=== PATIENT | female | born 1990 | race Hispanic/Latino ===

== ENCOUNTER 2017-08-05 20:34 | Emergency (ER) | payer MEDICAID ==
[2017-08-05 20:37] VITALS: BMI 21.0
--- NOTE | 2017-08-05 21:43 | ED PDOC ---
HPI: Psych/Substance Abuse Time Seen by Provider: 08/05/17 20:58 Chief Complaint (Nursing): Psychiatric Evaluation Chief Complaint (Provider): Psychiatric evaluation ED Caveat: Psychotic History Per: Patient, EMS History/Exam Limitations: clinical condition Onset/Duration Of Symptoms: Mins Current Symptoms Are (Timing): Still Present Additional Complaint(s): 27 year old female presented to ED via PD and EMS for a psychiatric evaluation. Patient reports she was in [employer] and her dog was tied outside when a bystander called EMS with concerns that the dog was tied since button clamper. She claims it was only for a few minutes. She also states she has lower abdominal pain associated with dysuria for the last week. She was recently evicted from her apartment and has been homeless for the last 2 days as she has been sleeping on the bench. As per PD, patient was expressing intangible thoughts in field and was speaking nonsensically prompting ED evaluation. Denies hallucination, suicidal and homicidal ideation, and mental illness. PMD: none lmp: now (normally irregular) Past Medical History Reviewed: Historical Data, Nursing Documentation, Vital Signs Vital Signs: Last Vital Signs Temp 98.2 F 08/05/17 20:37 Pulse 91 H 08/05/17 20:37 Resp 16 08/05/17 20:37 BP 156/92 H 08/05/17 20:37 Pulse Ox 100 08/05/17 20:37 - Medical History PMH: No Chronic Diseases - Surgical History Surgical History: No Surg Hx - Family History Family History: States: Unknown Family Hx - Social History Current smoker - smoking cessation education provided: No Alcohol: Social Drugs: Denies - Allergies Allergies/Adverse Reactions: Allergies Allergy/AdvReac Type Severity Reaction Status Date / Time No Known Allergies Allergy Verified 08/05/17 21:18 Review of Systems ROS Statement: Except As Marked, All Systems Reviewed And Found Negative Gastrointestinal: Positive for: Abdominal Pain Genitourinary Female: Positive for: Dysuria Psych: Negative for: Suicidal ideation (or homicidal), Other (hallucination or mental illness) Physical Exam - Reviewed Nursing Documentation Reviewed: Yes Vital Signs Reviewed: Yes - Physical Exam Comments: GENERAL APPEARANCE: Patient is awake, alert, oriented x 3, in no acute distress. Resting comfortably with tangent thoughts SKIN: Warm, dry; (-) cyanosis EYES: EOMI and painless. Pupils reactive.(-) conjunctival pallor, (-) scleral icterus, (-) nystagmus. Avoiding eye contact with provider. ENMT: Mucous membranes moist. Airway patent: (-) stridor. NECK: Supple, FROM (-) tenderness, (-) stiffness, (-) lymphadenopathy. CHEST AND RESPIRATORY: (-) rales, (-) rhonchi, (-) wheezes; breath sounds equal. Speaking in full sentences, respirations even and nonlabored. ABDOMEN: Soft, (+) suprapubic tenderness (-) distention (-) guarding (-) rebound (-) CVA tenderness. NEURO AND PSYCH: Mental status as above. Affect: flat chart reader: Intact. Pupils equal and reactive; EOMI; (-) facial asymmetry ; tongue and uvula midline. Strength symmetric. Gait steady. Speech clear. - Laboratory Results Result Diagrams: 08/06/17 00:05 08/06/17 00:05 Urine POC: Negative Urine dip results: Positive for: Leukocyte Esterase (SMALL), Blood (MODERATE). Negative for: Nitrate, Ketones, Glucose, Bilirubin, Protein - ECG O2 Sat by Pulse Oximetry: 100 (RA) Pulse Ox Interpretation: Normal Medical Decision Making Medical Decision Making: Initial Impression: psychiatric evaluation and abdominal pain; r/o UTI Initial Plan: Crisis evaluation ED urine dipstick ED urine Udip reviewed. Urinalysis and urine culture ordered. Urine : Negative 2340 Per discussion with crisis, patient is likely to be admitted. CBC and CMP ordered. 2350 Patient refusing to stay in ED exam room and uncooperative with ED staff. 1:1 observation ordered. 0100 UTI noted on lab work otherwise remainder of results unremarkable. Patient is medically stable for psychiatric admission, if needed. Case endorsed to Parisa Ojeda PA-C pending crisis disposition. Pertinent details reviewed. Scribe Attestation: Documented by Lang Madrigal acting as a scribe for Annie JADE. Provider Scribe Attestation: All medical record entries made by the Scribe were at my direction and personally dictated by me. I have reviewed the chart and agree that the record accurately reflects my personal performance of the history, physical exam, medical decision making, and the department course for this patient. I have also personally directed, reviewed, and agree with the discharge instructions and disposition. Disposition - Clinical Impression Clinical Impression: Psychiatric disturbance, UTI (urinary tract infection) - Patient ED Disposition Is Patient to be Admitted: Transfer of Care (Migue Ojeda PA-C at 0100 pending crisis disposition) - Disposition Disposition: Transfer of Care (Migue Ojeda PA-C at 0100 pending crisis disposition) Disposition Time: 01:00 Condition: FAIR Forms: [facility] (Luxembourgish) - POA Present On Arrival: None Results - Lab Results Lab Results: 08/06/17 08/06/17 08/05/17 00:05 00:05 23:08 WBC 6.1 RBC 3.96 Hgb 12.3 Hct 37.4 MCV 94.5 MCH 31.0 MCHC 32.8 L RDW 12.6 Plt Count 220 MPV 8.7 Neut % (Auto) 45.7 L Lymph % (Auto) 40.8 H [place] % (Auto) 10.2 H Eos % (Auto) 2.4 Baso % (Auto) 0.9 Neut # (Auto) 2.8 Lymph # (Auto) 2.5 [place] # (Auto) 0.6 Eos # (Auto) 0.1 Baso # (Auto) 0.1 Sodium 143 Potassium 3.9 Chloride 105 Carbon Dioxide 26 Anion Gap 16 BUN 12 Creatinine 0.7 Est GFR ( Amer) > 60 Est GFR (Non-Af Amer) > 60 Random Glucose 86 Calcium 9.2 Total Bilirubin 0.2 AST 34 ALT 32 Alkaline Phosphatase 52 Total Protein 6.8 Albumin 4.2 Globulin 2.6 Albumin/Globulin Ratio 1.6 Urine Color Yellow Urine Clarity Cloudy Urine pH 6.0 Ur Specific [place] 1.015 Urine Protein Negative Urine Glucose (UA) Neg Urine Ketones Negative Urine Blood Large Urine Nitrate Negative Urine Bilirubin Negative Urine Urobilinogen 0.2-1.0 Ur Leukocyte Esterase Mod Urine RBC (Auto) 30 H Urine Microscopic WBC 39 H Ur Squamous Epith Cells 2 Urine Bacteria Rare Urine Opiates Screen Urine Methadone Screen Ur Barbiturates Screen Ur Phencyclidine Scrn Ur Amphetamines Screen U Benzodiazepines Scrn U Oth Cocaine Metabols U Cannabinoids Screen 08/05/17 23:08 WBC RBC Hgb Hct MCV MCH MCHC RDW Plt Count MPV Neut % (Auto) Lymph % (Auto) [place] % (Auto) Eos % (Auto) Baso % (Auto) Neut # (Auto) Lymph # (Auto) [place] # (Auto) Eos # (Auto) Baso # (Auto) Sodium Potassium Chloride Carbon Dioxide Anion Gap BUN Creatinine Est GFR ( Amer) Est GFR (Non-Af Amer) Random Glucose Calcium Total Bilirubin AST ALT Alkaline Phosphatase Total Protein Albumin Globulin Albumin/Globulin Ratio Urine Color Urine Clarity Urine pH Ur Specific [place] Urine Protein Urine Glucose (UA) Urine Ketones Urine Blood Urine Nitrate Urine Bilirubin Urine Urobilinogen Ur Leukocyte Esterase Urine RBC (Auto) Urine Microscopic WBC Ur Squamous Epith Cells Urine Bacteria Urine Opiates Screen Negative Urine Methadone Screen Negative Ur Barbiturates Screen Negative Ur Phencyclidine Scrn Negative Ur Amphetamines Screen Negative U Benzodiazepines Scrn Negative U Oth Cocaine Metabols Negative U Cannabinoids Screen Negative
[2017-08-05 23:19] LABS: SQUAMOUS EPITHIAL 2 /hpf (0-5); URINE BACTERIA RARE (<OCC); URINE BILIRUBIN NEGATIVE (NEGATIVE); URINE BLOOD LARGE (NEGATIVE); URINE CLARITY CLOUDY (Clear); URINE COLOR YELLOW (YELLOW); URINE GLUCOSE (UA) NEG (Normal); URINE LEUKOCYTE ESTERASE MOD Leu/uL (Negative); URINE PROTEIN NEGATIVE (NEGATIVE); URINE UROBILINOGEN 0.2-1.0 mg/dL (0.2-1.0)
[2017-08-05 23:33] LABS: BARBITURATES, UR NEGATIVE (NEGATIVE); BENZODIAZEPINES, UR NEGATIVE (NEGATIVE); OPIATES, UR NEGATIVE (NEGATIVE); PHENCYCLIDINE, UR NEGATIVE (NEGATIVE)
[2017-08-06 00:15] LABS: BASO # 0.1 K/uL (0.0-0.2); BASO % 0.9 % (0.0-2.0); EOS # 0.1 K/uL (0.0-0.7); EOS % 2.4 % (0.0-4.0); HEMOGLOBIN 12.3 g/dL (12.0-16.0); LYMPH # 2.5 K/uL (1.0-4.3); LYMPH % 40.8 % (20.0-40.0); MEAN CELL VOLUME 94.5 fl (81.0-99.0); MEAN CORPUSCULAR HGB CONC 32.8 g/dL (33.0-37.0); MEAN PLATELET VOLUME 8.7 fl (7.2-11.7); MONO # 0.6 K/uL (0.0-0.8); MONO % 10.2 % (0.0-10.0); NEUT # 2.8 K/uL (1.8-7.0); NEUT % 45.7 % (50.0-75.0); RBC 3.96 Mil/uL (3.80-5.20); RED CELL DISTRIBUTION WIDTH 12.6 % (11.5-14.5); WHITE BLOOD COUNT 6.1 K/uL (4.8-10.8)
[2017-08-06 00:24] LABS: ALB/GLOB RATIO 1.6 (1.0-2.1); ALBUMIN 4.2 g/dL (3.5-5.0); ALT/SGPT 32 U/L (9-52); AST/SGOT 34 U/L (14-36); BLOOD UREA NITROGEN 12 mg/dl (7-17); CALCIUM 9.2 mg/dL (8.4-10.2); GFR AFRICAN-AMERICAN > 60; GFR NON-AFRICAN AMERICAN > 60
--- NOTE | 2017-08-06 04:10 | ED PDOC ---
- Laboratory Results Result Diagrams: 08/06/17 00:05 08/06/17 00:05 Urine POC: Negative - ECG O2 Sat by Pulse Oximetry: 100 (RA) Pulse Ox Interpretation: Normal Medical Decision Making Medical Decision Making: Time: 00:00 Patient was signed out to me by YASMANY Gupta pending crisis evaluation; she is medically cleared. Labs reviewed. 02:00 Patient is seen by crisis, and she is refusing voluntary admission. Pending [facility] screen. UA results reviewed, patient noted to have a UTI. Macrobid po ordered. Reevaluation: Patient is calm, cooperative with staff. She has no other complaints and is tolerating crackers and juice. 05:30 Patient sleeping comfortably, breathing is easy and unlabored, still pending [facility] screen at this time. Scribe Attestation: Documented by, Lindsay Kumar acting as a scribe for Elizabeth Ojeda PA-C. Provider Scribe Attestation: All medical record entries made by the Scribe were at my direction and personally dictated by me. I have reviewed the chart and agree that the record accurately reflects my personal performance of the history, physical exam, medical decision making, and the department course for this patient. I have also personally directed, reviewed, and agree with the discharge instructions and disposition. Disposition - Clinical Impression Clinical Impression: Psychiatric disturbance, UTI (urinary tract infection) - POA Present On Arrival: None - Disposition Disposition: Transfer of Care (Case endorsed to Dr. 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
--- NOTE | 2017-08-06 07:27 | ED PDOC ---
- Laboratory Results Result Diagrams: 08/06/17 00:05 08/06/17 00:05 Urine POC: Negative - ECG Interpretation Of ECG: NSR @ 71, no ST-T changes. O2 Sat by Pulse Oximetry: 100 (RA) Pulse Ox Interpretation: Normal Medical Decision Making Medical Decision Making: Patient endorsed to me by Dr. Do @ 0700, pending alcohol level and admission to [facility] Time: 1327 -- Accepted to [facility]. Scribe Attestation: Documented by David Alejandra, acting as a scribe for Dr. Danielle Caballero MD. Provider Scribe Attestation: All medical record entries made by the Scribe were at my direction and personally dictated by me. I have reviewed the chart and agree that the record accurately reflects my personal performance of the history, physical exam, medical decision making, and the department course for this patient. I have also personally directed, reviewed, and agree with the discharge instructions and disposition. Disposition - Clinical Impression Clinical Impression: UTI (urinary tract infection), Schizophrenia - POA Present On Arrival: None - Disposition Disposition: Other Institution Disposition Time: 13:40 Condition: STABLE Forms: [facility] (Vietnamese)
--- NOTE | 2017-08-06 09:10 | RAD ---
HISTORY: psych eval COMPARISON: No prior. TECHNIQUE: Chest PA and lateral FINDINGS: LUNGS: No active pulmonary disease. PLEURA: No significant pleural effusion identified. No pneumothorax apparent. CARDIOVASCULAR: Normal. OSSEOUS STRUCTURES: No significant abnormalities. VISUALIZED UPPER ABDOMEN: Normal. OTHER FINDINGS: None. IMPRESSION: No active disease.
--- NOTE | 2017-08-06 15:49 | CP.PCM.CON ---
History of Present Illness - History of Present Illness History of Present Illness: This is a 27 hr old female with h/o psychotic disorder and noncompliant with meds presenting with disorganized thinking and florid psychosis and refused voluntary admission and was screened by [facility] and accepted for admission but waiting for bed availability. Past Patient History - Past Social History Alcohol: Social Drugs: Denies - CARDIAC Hx Cardiac Disorders: No Hx Hypertension: No - PULMONARY Hx Tuberculosis: No - NEUROLOGICAL HX Cerebrovascular Accident: No Hx Seizures: No - HEMATOLOGICAL/ONCOLOGICAL Hx Cancer: No Hx Human Immunodeficiency Virus (HIV): No - GENITOURINARY/GYNECOLOGICAL Hx Sexually Transmitted Disorders: No - PSYCHIATRIC Hx Substance Use: No Meds Allergies/Adverse Reactions: Allergies Allergy/AdvReac Type Severity Reaction Status Date / Time No Known Allergies Allergy Verified 08/05/17 21:18 Results - Vital Signs Recent Vital Signs: Last Vital Signs Temp 98.2 F 08/06/17 14:17 Pulse 82 08/06/17 14:17 Resp 18 08/06/17 14:17 BP 118/69 08/06/17 14:17 Pulse Ox 100 08/06/17 14:17 - Labs Result Diagrams: 08/06/17 00:05 08/06/17 00:05 Labs: Laboratory Results - last 24 hr 08/05/17 08/05/17 08/06/17 23:08 23:08 00:05 WBC 6.1 RBC 3.96 Hgb 12.3 Hct 37.4 MCV 94.5 MCH 31.0 MCHC 32.8 L RDW 12.6 Plt Count 220 MPV 8.7 Neut % (Auto) 45.7 L Lymph % (Auto) 40.8 H [place] % (Auto) 10.2 H Eos % (Auto) 2.4 Baso % (Auto) 0.9 Neut # (Auto) 2.8 Lymph # (Auto) 2.5 [place] # (Auto) 0.6 Eos # (Auto) 0.1 Baso # (Auto) 0.1 Sodium Potassium Chloride Carbon Dioxide Anion Gap BUN Creatinine Est GFR ( Amer) Est GFR (Non-Af Amer) Random Glucose Calcium Total Bilirubin AST ALT Alkaline Phosphatase Total Protein Albumin Globulin Albumin/Globulin Ratio Urine Color Yellow Urine Clarity Cloudy Urine pH 6.0 Ur Specific [place] 1.015 Urine Protein Negative Urine Glucose (UA) Neg Urine Ketones Negative Urine Blood Large Urine Nitrate Negative Urine Bilirubin Negative Urine Urobilinogen 0.2-1.0 Ur Leukocyte Esterase Mod Urine RBC (Auto) 30 H Urine Microscopic WBC 39 H Ur Squamous Epith Cells 2 Urine Bacteria Rare Urine Opiates Screen Negative Urine Methadone Screen Negative Ur Barbiturates Screen Negative Ur Phencyclidine Scrn Negative Ur Amphetamines Screen Negative U Benzodiazepines Scrn Negative U Oth Cocaine Metabols Negative U Cannabinoids Screen Negative Alcohol, Quantitative 08/06/17 08/06/17 00:05 11:49 WBC RBC Hgb Hct MCV MCH MCHC RDW Plt Count MPV Neut % (Auto) Lymph % (Auto) [place] % (Auto) Eos % (Auto) Baso % (Auto) Neut # (Auto) Lymph # (Auto) [place] # (Auto) Eos # (Auto) Baso # (Auto) Sodium 143 Potassium 3.9 Chloride 105 Carbon Dioxide 26 Anion Gap 16 BUN 12 Creatinine 0.7 Est GFR ( Amer) > 60 Est GFR (Non-Af Amer) > 60 Random Glucose 86 Calcium 9.2 Total Bilirubin 0.2 AST 34 ALT 32 Alkaline Phosphatase 52 Total Protein 6.8 Albumin 4.2 Globulin 2.6 Albumin/Globulin Ratio 1.6 Urine Color Urine Clarity Urine pH Ur Specific [place] Urine Protein Urine Glucose (UA) Urine Ketones Urine Blood Urine Nitrate Urine Bilirubin Urine Urobilinogen Ur Leukocyte Esterase Urine RBC (Auto) Urine Microscopic WBC Ur Squamous Epith Cells Urine Bacteria Urine Opiates Screen Urine Methadone Screen Ur Barbiturates Screen Ur Phencyclidine Scrn Ur Amphetamines Screen U Benzodiazepines Scrn U Oth Cocaine Metabols U Cannabinoids Screen Alcohol, Quantitative < 10
--- NOTE | 2017-08-06 17:10 | ED PDOC ---
- Laboratory Results Result Diagrams: 08/06/17 00:05 08/06/17 00:05 Urine POC: Negative - ECG O2 Sat by Pulse Oximetry: 100 - Progress ED Course And Treament: 5p Rec'd endorsement from Dr Caballero. Pt for transfer to [facility] Involuntary psych. Pending bed availability. Patient has been accepted to [facility] and is medically cleared. Pt reporting headache. Tylenol ordered. 8p Pt stable 12am Endorsed to Dr Do. Same as above. Disposition - Clinical Impression Clinical Impression: UTI (urinary tract infection), Schizophrenia - POA Present On Arrival: None - Disposition Disposition: Transfer of Care Disposition Time: 00:00 Condition: STABLE Forms: [facility] (Belarusian)
--- NOTE | 2017-08-07 00:07 | ED PDOC ---
- Laboratory Results Result Diagrams: 08/06/17 00:05 08/06/17 00:05 Urine POC: Negative - ECG O2 Sat by Pulse Oximetry: 100 Medical Decision Making Medical Decision Makin Patient signed out to this provider from Dr. Simmons pending [facility] bed availability. Patient has been accepted to [facility] and is medically cleared. 0700 Patient will be signed out to Dr. Levine pending [facility] bed availability. Scribe Attestation: Documented by Keira Hall acting as a scribe for Be Do MD. Scribe Attestation: All medical record entries made by the Scribe were at my direction and personally dictated by me. I have reviewed the chart and agree that the record accurately reflects my personal performance of the history, physical exam, medical decision making, and the department course for this patient. I have also personally directed, reviewed, and agree with the discharge instructions and disposition. Disposition - Clinical Impression Clinical Impression: UTI (urinary tract infection), Schizophrenia - POA Present On Arrival: None - Disposition Disposition: Transfer of Care Disposition Time: 07:00 Condition: FAIR Forms: [facility] (Icelandic) Patient Signed Over To: Michael Levine Handoff Comments: Patient will be signed out to Dr. Levine pending [facility] bed availability.
--- NOTE | 2017-08-07 07:37 | ED PDOC ---
- Laboratory Results Result Diagrams: 08/06/17 00:05 08/06/17 00:05 Urine POC: Negative - ECG O2 Sat by Pulse Oximetry: 100 Medical Decision Making Medical Decision Makin:00 Patient care endorsed from Dr. Be Do to Dr. Michael Levine pending bed availability at [facility]. 1100 pt has a bed and is stable for transfer Scribe Attestation: Documented by Cherelle Hernandez, acting as a scribe for Michael Levine MD Provider Scribe Attestation: All medical entries made by the Scribe were at my direction and personally dictated by me. I have reviewed the chart and agree that the record accurately reflects my personal performance of the history, physical exam, medical decision making, and the department course for this patient. I have also personally directed, reviewed, and agree with the discharge instructions and disposition. Disposition - Clinical Impression Clinical Impression: UTI (urinary tract infection), Schizophrenia - POA Present On Arrival: None - Disposition Disposition: Other Institution [place] [place] Disposition Time: 11:00 Condition: FAIR Forms: [employer] (Bengali)
[2017-08-07 13:38] VITALS: BP 102/56; RESP 20; TEMP 98
[2017-08-07 13:39] VITALS: PULSE 78
--- NOTE | 2017-08-07 14:19 | CARD ---
APPROVED REPORT EKG Measurement Heart [id number] <Conclusion> Normal sinus rhythm Normal ECG
[2017-08-07 15:30] VITALS: O2SAT 100
== END 2017-08-07 13:05 | disposition home or self-care (01) ==
LOC: H.ER 20:34
DX: N39.0 Urinary tract infection, site not specified (principal); Z86.59 Personal history of other mental and behavioral disorders; Z00.8 Encounter for other general examination; Z59.0 Homelessness; Z91.14 Patient's other noncompliance with medication regimen